=== PATIENT | female | born 1950 | race Caucasian/White ===

== ENCOUNTER → 2020-10-12 14:23 | Outpatient (CLI) | payer MEDICARE, OTHER, SELFPAY ==
--- NOTE | 2020-10-12 14:27 | CT_ITS ---
STUDY: CT CHEST WITHOUT CONTRAST REASON FOR EXAM: Female, 70 years old. ] Right Breast cancer radiation therapy planning scan RADIATION DOSAGE (If Supplied By Facility): CTDIvol = ( 17.63 ) mGy, DLP = ( 489.17 ) mGycm TECHNIQUE: Transaxial imaging was performed without the administration of intravenous contrast material. Individualized dose optimization techniques were used for this CT. COMPARISON: None. FINDINGS: This is a radiation planning study with protocol adjustment for treatment targeting. Please refer to full diagnostic CT chest for diagnosis of chest structures. There is mosaic attenuation of the lungs, likely due to atelectasis superimposed on mild vascular/small airway disease. There is no pulmonary edema or pleural effusions. Airways are patent. Mediastinal contents are normal. Right breast contains a lesion and clips. CT/Chest without Contrast IMPRESSION: Radiation planning scan of the right breast. Electronically Signed: Michael Zapata MD at 20:57 EDT Tel , Service support ,
== END ==
PROVIDERS: PCP Internal Medicine; Referring Provider Radiology Radiation Oncology; Visit Provider Radiology Radiation Oncology
DX: C50.219 Malignant neoplasm of upper-inner quadrant of unspecified female breast (principal)
CPT/HCPCS: 71250